=== PATIENT | female | born 1935 | race Caucasian/White ===

== ENCOUNTER → 2021-07-25 | Outpatient (CLI) | payer MEDICARE, OTHER | LOC: M RAD 10:51 | PROVIDERS: ATTEND Family Medicine | DX: M54.32 Sciatica, left side (principal); M25.78 Osteophyte, vertebrae; M48.07 Spinal stenosis, lumbosacral region; M51.27 Other intervertebral disc displacement, lumbosacral region ==

== ENCOUNTER → 2021-12-15 | Outpatient (CLI) | payer MEDICARE, OTHER ==
[~2021-12-15] MED LIST: E-Z-GAS II EFFERVESCENT PACKET (SODIUM BICARB./CITRIC ACID/SIMETHICONE) As Ordered ONE; E-Z-HD 98% w/w 340GM SUSP BTL As Ordered ONE; E-Z-PAQUE 96% w/w SUSP 176GM BTL As Ordered ONE
== END ==
LOC: M RAD 07:32
PROVIDERS: ATTEND Family Medicine
DX: K21.9 Gastro-esophageal reflux disease without esophagitis (principal); K27.9 Peptic ulcer, site unspecified, unspecified as acute or chronic, without hemorrhage or perforation

== ENCOUNTER → 2022-02-16 | Outpatient (CLI) | payer MEDICARE, OTHER | LOC: M LAB 14:05 | PROVIDERS: ATTEND Family Medicine | DX: N39.0 Urinary tract infection, site not specified (principal) ==